=== PATIENT | male | born 1970 | race Caucasian/White ===

== ENCOUNTER 2018-06-06 11:36 | Emergency (ER) | payer MEDICAID ==
[~2018-06-06] VITALS: Ht 167.6 cm; Wt 79.4 kg
[2018-06-06 11:36] VITALS: BP 137/98
--- NOTE | 2018-06-06 12:15 | NUR ---
DR. QIANA HATFIELD SPECIALIST - UROLOGY [phone] CALLED.
[2018-06-06] MEDS ORDERED: IBUPROFEN 600 MG TABLET PO ONE ×2 (12:21→12:30)
== END 2018-06-06 12:33 | disposition home or self-care (01) ==
LOC: ER 11:40
DX: N47.2 Paraphimosis (principal)

== ENCOUNTER 2018-06-09 13:16 | Emergency (ER) | payer MEDICAID ==
[~2018-06-09] VITALS: Ht 167.6 cm; Wt 74.8 kg
[2018-06-09 13:55] VITALS: BP 140/75
== END 2018-06-09 15:25 | disposition home or self-care (01) ==
LOC: ER 13:18
DX: N48.89 Other specified disorders of penis (principal); Z60.2 Problems related to living alone
CPT/HCPCS: 99281; A4606; Z7502